=== PATIENT | male | born 1940 | race Caucasian/White ===

== ENCOUNTER 2018-08-25 16:31 | Inpatient (IN) | payer OTHER ==
[~2018-08-25] VITALS: Ht 182.9 cm; Wt 94.1 kg
[2018-08-25 16:40] LABS: Chloride (POC) 93 mmol/L (98-108); Glucose (ISTAT POC) 167 mg/dL (70-99); Hemoglobin (POC) 18.4 g/dL (13.5-17.5); Potassium (POC) 3.9 mmol/L (3.5-5.5); Sodium (POC) 144 mmol/L (135-148); Total CO2 (POC) 27 mmol/L (21-32)
[2018-08-25 17:32] LABS: PCO2 Arterial 45.2 mmHg (35-45); PO2 Arterial 66.9 mmHg (80-100); pH Blood Arterial 7.27 (7.35-7.45)
[2018-08-25 18:07] LABS: BASOPHILS ABSOLUTE AUTO 0.28 K/mm3 (0.00-0.23); BASOPHILS PERCENT AUTO 1 % (0-2); EOSINOPHILS ABSOLUTE AUTO 0.26 K/mm3 (0.00-0.68); EOSINOPHILS PERCENT AUTO 1 % (0-6); Hemoglobin 16.1 g/dL (13.5-17.5); IMMATURE GRAN ABSOLUTE AUTO 1.23 K/mm3 (0.00-0.10); IMMATURE GRAN PERCENT AUTO 4 % (0-1); LYMPHOCYTES ABSOLUTE AUTO 5.21 K/mm3 (0.84-5.20); LYMPHOCYTES PERCENT AUTO 15 % (21-46); MONOCYTES ABSOLUTE AUTO 1.86 K/mm3 (0.16-1.47); MONOCYTES PERCENT AUTO 5 % (4-13); Mean Corpuscular HGB Conc 31.6 g/dL (31.5-36.5); Mean Corpuscular Volume 98 fL (80-100); Mean Platelet Volume 12.3 fL (9.1-12.4); NEUTROPHILS ABSOLUTE AUTO 25.62 K/mm3 (1.96-9.15); NEUTROPHILS PERCENT AUTO 74 % (41-73); Platelet Count 171 K/mm3 (150-400); RDW Coefficient Variation 13.4 % (11.7-14.2); RDW Standard Deviation 48.2 fL (35.1-46.3); White Blood Cell Count 34.46 K/mm3 (4.00-11.30)
[2018-08-25] MEDS ORDERED: AMAN100 PO (18:13)
[2018-08-25] MEDS ORDERED: RASA1 PO (18:14)
[2018-08-25] MEDS ORDERED: SINEMET 25-1001 EACH PO (18:15)
[2018-08-25] MEDS ORDERED: TIMOLOL 0.5%-LAT5 ML BOTHEYES (18:16)
[2018-08-25] MEDS ORDERED: Xalatan2.5 ML BOTHEYES (18:16)
[2018-08-25] MEDS ORDERED: TIMOLOL MALEATE5 ML BOTHEYES (18:17)
[2018-08-25] MEDS ORDERED: METO25ER PO (18:17)
[2018-08-25] MEDS ORDERED: DIGOX250 MCG PO (18:18)
[2018-08-25] MEDS ORDERED: XARELTO20 MG PO (18:19)
[2018-08-25] MEDS ORDERED: ATOR20 PO (18:19)
[2018-08-25] MEDS ORDERED: TAMS.4ER PO (18:20)
[2018-08-25 18:21] LABS: International Normalized Ratio 1.71; Prothrombin Time Results 17.3 Sec (9.7-11.5)
[2018-08-25] MEDS ORDERED: HEARTBURN RELI150 M1 PO (18:21)
[2018-08-25] MEDS ORDERED: Multivitamin1 EAC1 PO (18:22)
[2018-08-25] MEDS ORDERED: CHOL10002 PO (18:22)
[2018-08-25 18:37] LABS: Alanine Aminotransfer (ALT/SGP 30 U/L (12-78); Albumin, Blood 2.6 g/dL (3.4-5.0); Alk Phos 76 U/L (50-136); Anion Gap 12 mmol/L (6-16); Aspartate Aminotrans (AST/SGOT 110 U/L (12-37); Bilirubin, Total 0.9 mg/dL (0.1-1.0); Blood Urea Nitrogen 12 mg/dL (8-24); Bun/Creatinine Ratio 12.2 (12.0-20.0); CO2, Blood 26 mmol/L (21-32); Chloride, Blood 106 mmol/L (98-108); Creatinine, Blood 0.98 mg/dL (0.60-1.20); Globulin, Blood 2.5 g/dL (2.2-4.0); Glomerular Filtration Rate >60 (60-); Glucose, Blood 238 mg/dL (70-99); Potassium, Blood 3.2 mmol/L (3.5-5.5); Sodium, Blood 144 mmol/L (136-145); Total Protein, Blood 5.1 g/dL (6.4-8.2)
[2018-08-25 18:49] LABS: Digoxin (Lanoxin) 0.75 ug/mL (0.80-2.00)
[2018-08-25 19:13] LABS: Troponin I 0.548 ng/mL (0.000-0.040)
--- NOTE | 2018-08-25 19:55 | NUR ---
ADMIT PT ARRIVES FROM ER VIA STRETCHER ON VENT W/ SETTINGS OF AC16/450/100%/10 AND O2 SATS 89-90. LEVOPHED AT 10MCG/MIN, EPI IS OFF. PT IS UNRESPONSIVE TO ALL STIM, OCCASIONAL COUGH NOTED BUT NO RESPONSE TO PAIN, EYES HAVE HORIZONTAL BACK AND FORTH MOTION. LUNGS HAVE RALES THROUGHOUT AND BLOODY SECRETIONS CAN BE SEEN IN ETT. PT HAS FLAIL CHEST MOVEMENT TO STERNUM AND HAS + ACCESSORY MUSCLE USE. BP ADEQUATE, LEVOPHED REDUCED TO 5MCG/MIN. PLAN TO START TTM WITH CHEST AND LEG WRAPS TO GOAL TEMP OF 96.8. EKG SHOWS AFIB 100-110.
--- NOTE | 2018-08-25 22:45 | NUR ---
CALL TO DR AYOUB ATTEMPTED TO CALL DR OSUNA WITHOUT SUCCESS. CALL TO DR AYOUB TO UPDATE ON INCREASED HR W/ AFIB; DR AYOUB AWARE OF HX, NO UOP, AND CONTINUED RALES, CURRENT BP. ORDER FOR 40MG LASIX.
--- NOTE | 2018-08-26 00:18 | NUR ---
NEW ORDERS SPOKE WITH DR GARNER, UPDATED ON PREVIOUS LUNG SOUNDS AND LASIX ADMINISTRATION AND CONTINUED ELEVATED HR UP TO 130. ORDER TO CHANGE LEVO TO PARISH-SYNEPHRINE AND TRY AMIODARONE 150MG BOLUS X 1.
[2018-08-26 03:35] LABS: BASOPHILS ABSOLUTE AUTO 0.15 K/mm3 (0.00-0.23); BASOPHILS PERCENT AUTO 0 % (0-2); EOSINOPHILS ABSOLUTE AUTO 0.01 K/mm3 (0.00-0.68); EOSINOPHILS PERCENT AUTO 0 % (0-6); Hemoglobin 16.9 g/dL (13.5-17.5); IMMATURE GRAN PERCENT AUTO 2 % (0-1); LYMPHOCYTES ABSOLUTE AUTO 1.52 K/mm3 (0.84-5.20); LYMPHOCYTES PERCENT AUTO 4 % (21-46); MONOCYTES PERCENT AUTO 12 % (4-13); Mean Corpuscular HGB 31.9 pg (26.0-34.0); Mean Corpuscular HGB Conc 32.5 g/dL (31.5-36.5); Mean Corpuscular Volume 98 fL (80-100); Mean Platelet Volume 12.1 fL (9.1-12.4); NEUTROPHILS ABSOLUTE AUTO 34.78 K/mm3 (1.96-9.15); NEUTROPHILS PERCENT AUTO 82 % (41-73); Platelet Count 172 K/mm3 (150-400); RDW Coefficient Variation 13.7 % (11.7-14.2); RDW Standard Deviation 49.7 fL (35.1-46.3); Red Blood Cell Count 5.29 M/mm3 (4.30-5.90); White Blood Cell Count 42.46 K/mm3 (4.00-11.30)
[2018-08-26 03:49] LABS: International Normalized Ratio 1.36
[2018-08-26 03:55] LABS: BAND PERCENT MAN 16 % (0-8); BASOPHILS PERCENT MAN 0 % (0-2); EOSINOPHILS PERCENT MAN 0 % (0-6); LYMPHOCYTES ABSOLUTE MAN 2.12 K/mm3 (0.84-5.20); LYMPHOCYTES PERCENT MAN 5 % (21-46); MONOCYTES ABSOLUTE MAN 4.67 K/mm3 (0.16-1.47); MONOCYTES PERCENT MAN 11 % (4-13); NEUTROPHILS ABSOLUTE MAN 35.66 K/mm3 (1.96-9.15); SEG NEUTROPHILS PERCENT MAN 68 % (41-73); TOTAL CELLS COUNTED 100
[2018-08-26 03:59] LABS: Albumin, Blood 3.3 g/dL (3.4-5.0); Albumin/Globulin Ratio 1.3 (0.8-1.8); Bilirubin, Total 1.8 mg/dL (0.1-1.0); Bun/Creatinine Ratio 10.7 (12.0-20.0); Calcium, Blood 7.9 mg/dL (8.5-10.1); Creatinine, Blood 1.87 mg/dL (0.60-1.20); Globulin, Blood 2.6 g/dL (2.2-4.0); Magnesium, Blood 2.1 mg/dL (1.6-2.4); Potassium, Blood 3.8 mmol/L (3.5-5.5); Total Protein, Blood 5.9 g/dL (6.4-8.2)
--- NOTE | 2018-08-26 04:10 | NUR ---
CATHETER CHANGE OUT BLADDER SCANNED, FOUND 100-150ML URINE IN BLADDER, NO URINE IN BRICENO TUBING. CATHETER REMOVED, BLOOD CLOT NOTED TO TIP AND REPLACED WITH 150ML URINE OUT.
[2018-08-26 05:55] LABS: PCO2 Arterial 46.6 mmHg (35-45); PO2 Arterial 88.6 mmHg (80-100)
[2018-08-26 05:56] LABS: pH Blood Arterial 7.16 (7.35-7.45)
--- NOTE | 2018-08-26 06:14 | NUR ---
SHIFT SUMMARY PT REMAINS UNRESPONSIVE. INTUBATED W/ VENT SETTINGS OF AC16/450/80%/12. PROPOFOL AT 10MCG/KG/MIN, LEVOPHED AT 5MCG/MIN, NEOSYNEPHRINE AT 60 AND AMIODARONE AT 1MG/HR. PT HAS SUBSTERNAL RETRACTIONS AND ACCESSORY MUSCLE USE DESPITE SEDATION. TTM CONTINUES UNTIL TONIGHT AT 1999 WITH GOAL OF 96.8. ATTEMPTED TO CALL CRITICAL PH ABG THIS AM BUT NO RESPONSE-WILL UPDATE AM RN. BP LOW BUT MAP >65, EKG SHOWS AFIB IN THE 70'S AND O2 SATS 97%. PT'S REYMUNDO REMAINED IN ROOM ALL NIGHT, HAS CALLED PT'S DAUGHTERS AND PLANS TO INCLUDE THEM IN ANY DECISION MAKING.
--- NOTE | 2018-08-26 08:20 | NUR ---
Assessment- at bedtime. Pt. intubated, on minimal sedation, no response to painful stimuli. No obvious pupillary reaction. On multiple IV gtts: Levophed at 7 mcg and increased to 12 mcg. Neosyn at 60 mcg, propafol at 10 mcg,NS at 10 ml/hr, Amiodarone decreased to .5 mg/hr. Femoral central line intact. No u/o noted at this time.
--- NOTE | 2018-08-26 09:00 | NUR ---
Dr. Erazo into see PT. in consult. Orders noted.
--- NOTE | 2018-08-26 09:30 | NUR ---
Dr. Nicholas Snowden into see pt. Code status changed to DNR.
[2018-08-26 11:44] LABS: Influenza A Negative (NEGATIVE); Influenza B Negative (NEGATIVE)
--- NOTE | 2018-08-26 12:03 | NUR ---
Echocardiogram completed.
--- NOTE | 2018-08-26 15:11 | NUR ---
Neuro- No chg in neuro status. Sl. decerebrate posture seen with nox. stimuli. Seen as sl. shoulder movement. All pressors off and SBP cont> 150.
--- NOTE | 2018-08-26 15:27 | NUR ---
IV FLUIDS- These meds have all been dc,d. Amiodarone,Levophed,Neosynephrine, Propafol.
--- NOTE | 2018-08-26 16:17 | NUR ---
INITIAL PAL CARE VISIT MADE AFTER REVIEW OF EMR. PT IS 78 YEAR OLD WITH HX OF PARKINSON'S AND DEMENTIA, CAD, COPD, OA AND IS MILDLY CONFUSED AT BASELINE. YESTERDAY, PER , PT WAS HAVING A "GOOD DAY" AND WAS OUT WALKING IN THE SNOW AND CAME IN TO DO SOME WOODWORKING WHEN HE FELL TO THE FLOOR. AFTER A PERIOD OF 5-10 MINUTES CPR WAS INITIATED BY A NEIGHBOR AND PT WAS TRANSPORTED BY AMBULANCE TO HOSPITAL. PT DX WITH IL. CURRENTLY HE IS INTUBATED AND ON COOLING DEVICES. HE IS NOT RESPONSIVE TO STIMULI. HE IS MOVING HIS TOES ON HIS RIGHT FOOD BUT NOT PURPOSEFULY. HE DOES NOT APPEAR TO BE IN DISTRESSPER OR PAIN CURRENTLY. 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 REYMUNDO STATES SHE CHANGED HIS CODE STATUS BECAUSE HE WOULD NOT WANT TO LIVE "LIKE A VEGETABLE". SHE EXPRESSES HOPE FOR IMPROVEMENT AND IS GIVING HIM TIME TO WAIT AND SEE BUT SHE IS REALISTIC AND APPROPRIATELY GRIEVING FOR HIM. PT LIVES IN MY NEIGHB[place]HOOD AND IS NOT DRIVING IN THE SNOW. I OFFERED TO TRANSPORT HER HOME THIS JOSSELINE AND BACK TO HOSPITAL IN AM. SHE HAS A RIDE HOME [email or web address] AND HAS MY PERSONAL NUMBER IF SHE NEEDS HELP WITH TRANSPORTATION OR ANYTHING ELSE TOMORROW. PLANNED WITH FOR PAL CARE TO STAY IN TOUCH WITH HER DAILY.
--- NOTE | 2018-08-26 17:46 | NUR ---
SUMMARY-Pt. con't to be unresponsive. Sl. posturing with stimuli. Pt. opened eyes but woth no focusing to nox. stimuli. Raised rt. forearm off pillow with stimulus also. Remains on PS 8 TV 450 50% Peep 12. U/O remains very low.Cooling wrap con't on until 1999 and then begin to rewarm. Heparin on hold x one hr and then will resume at 11u/kg/hr. NaHCO3 infusing at 100ml/hr. Dr. Roberson in earlier and talked with .
--- NOTE | 2018-08-26 20:31 | NUR ---
PATIENT INTUBATED WITH VENT SET AT SPONT PS8 PEEP12 FIO2 50% PATIENT RESP 30'S. PATIENT RECEIVING NO SEDATION AT THIS TIME. PATIENT OPENS EYES WITH ORAL CARE, NOT MAKING EYE CONTACT AND GRIMACE SEEN. BLINK WITH EYELASH TOUCH. PUPILS UNREACTIVE. SLIGHT MOVEMENT SEEN TO BOTH ARMS, NOT FOLLOWING DIRECTIONS AND NO SQUEEZE IN HANDS. BILAT WRIST RESTRAINTS REPLACED TO PREVENT ACCIDENTAL EXTUBATION. COOLING WRAPS REMOVED AND REWARMING STARTED PATIENT TEMP ALREADY 98.8 AT THIS TIME.
--- NOTE | 2018-08-26 21:20 | NUR ---
DOCTOR BING NOTIFIED OF PATIENT TEMP UP TO 100.0 POST REWARMING ORDER OBTAINED FOR TYLENOL AND ICE PACKS PLACED ON PATIENT. PLAN TO RESTART COOLING BLANKET
[2018-08-27 01:06] LABS: BASOPHILS PERCENT AUTO 0 % (0-2); EOSINOPHILS PERCENT AUTO 0 % (0-6); Hematocrit 40.9 % (37.0-53.0); Hemoglobin 13.9 g/dL (13.5-17.5); IMMATURE GRAN PERCENT AUTO 1 % (0-1); LYMPHOCYTES ABSOLUTE AUTO 1.72 K/mm3 (0.84-5.20); LYMPHOCYTES PERCENT AUTO 6 % (21-46); MONOCYTES ABSOLUTE AUTO 2.44 K/mm3 (0.16-1.47); MONOCYTES PERCENT AUTO 9 % (4-13); Mean Corpuscular HGB 32.3 pg (26.0-34.0); Mean Corpuscular Volume 95 fL (80-100); Mean Platelet Volume 12.8 fL (9.1-12.4); NEUTROPHILS ABSOLUTE AUTO 23.79 K/mm3 (1.96-9.15); NEUTROPHILS PERCENT AUTO 84 % (41-73); Platelet Count 102 K/mm3 (150-400); RDW Coefficient Variation 13.7 % (11.7-14.2); RDW Standard Deviation 47.9 fL (35.1-46.3); Red Blood Cell Count 4.31 M/mm3 (4.30-5.90); White Blood Cell Count 28.35 K/mm3 (4.00-11.30)
[2018-08-27 01:31] LABS: BAND PERCENT MAN 18 % (0-8); BASOPHILS PERCENT MAN 0 % (0-2); EOSINOPHILS PERCENT MAN 0 % (0-6); LYMPHOCYTES ABSOLUTE MAN 2.83 K/mm3 (0.84-5.20); LYMPHOCYTES PERCENT MAN 10 % (21-46); METAMYELOCYTE ABSOLUTE MAN 0.85 K/mm3 (0.00-0.00); METAMYELOCYTE PERCENT MAN 3 % (0-0); MONOCYTES PERCENT MAN 6 % (4-13); NEUTROPHILS ABSOLUTE MAN 22.96 K/mm3 (1.96-9.15); SEG NEUTROPHILS PERCENT MAN 63 % (41-73); TOTAL CELLS COUNTED 100
[2018-08-27 01:57] LABS: Albumin, Blood 2.7 g/dL (3.4-5.0); Bilirubin, Total 1.4 mg/dL (0.1-1.0); Bun/Creatinine Ratio 15.8 (12.0-20.0); Calcium, Blood 8.3 mg/dL (8.5-10.1); Creatinine, Blood 2.02 mg/dL (0.60-1.20); Globulin, Blood 2.6 g/dL (2.2-4.0); Magnesium, Blood 1.6 mg/dL (1.6-2.4); Phosphorus, Blood 4.5 mg/dL (2.5-4.9); Potassium, Blood 4.2 mmol/L (3.5-5.5); Total Protein, Blood 5.3 g/dL (6.4-8.2)
[2018-08-27 04:45] LABS: PO2 Arterial 85.2 mmHg (80-100); pH Blood Arterial 7.48 (7.35-7.45)
--- NOTE | 2018-08-27 05:58 | NUR ---
PATIENT REMAINS INTUBATED, OPENS EYES TO ORAL CARE WITH GRIMACING AND GAG WITH DEEP ORAL SUCTIONING. SLIGHT MOVEMENT SEEN IN BOTH ARMS, NO MOVEMENT SEEN IN LEGS. VENT SET AC22 TV450 PEEP12 FIO2 30% CHANGED FROM SPONT DUE TO LOW MINUTE VENTILATION. PATIENT MEDICATED ONCE WITH FENTANYL IV, AFTER BATH COMPLETE. HEPARIN DRIP CONTINUES PER PHARMACY. PATIENT TEMP 100.4 TYLENOL GIVEN PER OG.
--- NOTE | 2018-08-27 09:00 | NUR ---
CARE ASSUMED CARE AND REPORT ASSUMED FROM TUTU GROVER. NO SEDATION AT THIS TIME. PT REMAINS ON VENTILATOR AT AC 22, TV 450, PEEP 12, FIO2 30%. LUNG SOUNDS COARSE THROUGHOUT. PT HAS FLAIL CHEST AND GRIMACES IN PAIN WITH MOVEMENT. WILL ADMINISTER FENTANYL IVP NEEDED. TYLENOL 650 MG GIVEN FOR FEVER; WILL MONITOR. AFIB, HR 90-120S. MAP GREATER THAN 60. HOB ELEVATED AND PT TURNED NEEDED. D5 WITH SODIUM BICARB INFUSING AT 100 ML/HR PER ORDER. HEPARIN GTT INFUSING AT 9 UNITS/HR PER PHARMACY DOSING. BEDSIDE AND UPDATED. DNR BAND SECURED ON WRIST. WILL CONTINUE TO MONITOR.
--- NOTE | 2018-08-27 11:45 | NUR ---
PALLIATIVE CARE VISIT. Pt is off cooling blankets but remains unresponsive and ventilated. He is receiving fentanyl for pain prn per eMAR. Pt appears very comfortable with no nonverbal pain, agitation or distress indicators noted. Spent time in supportive listening and conversation with , Danitza. She said she and pt's daughters who live locally are "hoping for a miracle". Store Associate had just been in and Danitza remarked what a beautiful prayer Store Associate Angi has said for them. She was very moved and appreciative. Spoke briefly with pt's RN and two Drs. Pt's neuro status unchanged and he does not appear to be waking up even with no medication for sedation. Temp is below 100 at time of my visit. Skin warm, slightly damp and reports "fever broke" in explanation of clamy skin. We will cont to follow and support family in advanced care decision making conversations going forward.
--- NOTE | 2018-08-27 13:30 | NUR ---
REASSESSMENT PT REMAINS INTUBATED WITHOUT SEDATION. VSS. REMAINS IN AFIB, HR 80-110. AFEBRILE. BUE RESTRAINED. BEDSIDE. HEPARIN GTT CONTINUES TO INFUSE AT 9 UNITS/HR. D5 WITH BICARB REMAINS INFUSING PER ORDER. OGT REMAINS CLAMPED. WILL CONTINUE TO MONITOR.
--- NOTE | 2018-08-27 15:55 | NUR ---
I met with pt's , Danitza at bedside. Both of them worked here at [facility] for many years. Danitza is trying to hold on to hope that Davion will recover. She admits, he has been ill for some time. She spoke at length about the events that brought Davion here, and it seemed to do her good to be heard and affirmed. We prayed together at bedside for healing at her request. Danitza appears to understand the seriousness of this hospitalization. She is trying to balance this awareness with hope. I will remain available.
--- NOTE | 2018-08-27 17:35 | NUR ---
SHIFT SUMMARY PT INTUBATED WITHOUT SEDATION ALL SHIFT. DOES NOT FOLLOW COMMANDS BUT DOES GRIMACE TO ORAL CARE AND TURNING. FENTANYL GIVEN FOR PAIN NEEDED. SODIUM BICARB DISCONTINUED AND LR MIV STARTED AT 75 ML/HR. HEPARIN GTT REMAINS INFUSING PER PHARMACY DOSING; CURRENTLY INFUSING AT 9 UNITS/HR. BUE RESTRAINED TO PROTECT TUBES AND LINES. BEDSIDE DURING DAYTIME AND UPDATED ON PLAN. PIVOT 1.5 TF STARTED AT 10 ML/HR PER ORDERS IN OGT. MAP GREATER THAN 60 ENTIRE SHIFT. REMAINED IN AFIB, WITH HR 90-120S. HOB ELEVATED AND PT TURNED Q2H. WILL GIVE BEDSIDE, HANDOFF REPORT TO ADAM GROVER.
--- NOTE | 2018-08-27 19:28 | NUR ---
ASSESSMENT PT INTUBATED AND [facility]. OPENS EYES WITH MOUTH CARE ONLY. NOT FOLLOWING INSTRUCTIONS. LUNGS COARSE RHONCI. VENT AC 22 TV 450 PEEP 12 FIO2 25%. SUCTIONED SMALL AMT BLOODY SECRECTIONS VIA ET TUBE. HEART RATE IRREGULAR AFIB 100'S. BP STABLE. BT+ ABD SOFT. NG WITH TUBE FEED PIVOT 1.5 AT 10 ML/HR. 2 ML RESIDUAL REFED. BRICENO CATH PATENT DRAINING CLOUDY DARK YELLOW URINE. CENTRAL LINE TO GROIN WITH LR AT 75 ML/HR AND HEAPARIN T 9 UNITS. REPOSITIONED AND ORAL CARE DONE.
--- NOTE | 2018-08-28 | NUR ---
REASSESSMENT PT INTUBATED AND ON [facility] VENT. BED BATH COMPLETE. LUNGS CLEAR BUT DECREASED IN BASES. SCANT BLOODY SECRECTIONS SUCTIONED VIA ET TUBE. ORAL CARE DONE. PT OPENED EYES AND MOVED RIGHT ARM WITH TURNING DURING BED BATH. 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 OPENED MOUTH FOR ORAL CARE WHEN ASKED. BLOOD GULCOSE DONE. RESIDUAL CHECK ZERO.
--- NOTE | 2018-08-28 01:17 | NUR ---
HEAD CT PT TAKEN TO CT WITH RT AND PT ON PORT VENT. HEAD CT DONE AND PT BACK TO ROOM. NO CHANGES
--- NOTE | 2018-08-28 04:10 | NUR ---
REASSESSMENT PT OPENING EYES AND MOUTH TO INSTRUCTIONS. LUNGS CLEAR BUT DECREASED. NO VENT CHANGES. LABS DRAWN VIA CENTRAL LINE TO RIGHT GROIN, CLAVES CHANGED. ORAL CARE DONE. CXR DONE AND PT REPOSITIONED. ZERO RESIDUAL.
[2018-08-28 04:24] LABS: Hematocrit 36.1 % (37.0-53.0); Hemoglobin 12.1 g/dL (13.5-17.5); Mean Corpuscular HGB 31.9 pg (26.0-34.0); Mean Corpuscular HGB Conc 33.5 g/dL (31.5-36.5); Mean Corpuscular Volume 95 fL (80-100); Platelet Count 70 K/mm3 (150-400); RDW Coefficient Variation 14.1 % (11.7-14.2); RDW Standard Deviation 48.9 fL (35.1-46.3); Red Blood Cell Count 3.79 M/mm3 (4.30-5.90); White Blood Cell Count 18.04 K/mm3 (4.00-11.30)
[2018-08-28 04:25] LABS: Mean Platelet Volume 13.3 fL (9.1-12.4)
[2018-08-28 04:42] LABS: Albumin, Blood 2.6 g/dL (3.4-5.0); Anion Gap 7 mmol/L (6-16); Blood Urea Nitrogen 41 mg/dL (8-24); Bun/Creatinine Ratio 24.7 (12.0-20.0); CO2, Blood 34 mmol/L (21-32); Chloride, Blood 96 mmol/L (98-108); Creatinine, Blood 1.66 mg/dL (0.60-1.20); Glomerular Filtration Rate 43 (60-); Glucose, Blood 121 mg/dL (70-99); Magnesium, Blood 1.8 mg/dL (1.6-2.4); Phosphorus, Blood 3.2 mg/dL (2.5-4.9); Potassium, Blood 3.4 mmol/L (3.5-5.5); Sodium, Blood 137 mmol/L (136-145)
[2018-08-28 04:50] LABS: BAND PERCENT MAN 22 % (0-8); BASOPHILS PERCENT MAN 0 % (0-2); EOSINOPHILS PERCENT MAN 0 % (0-6); LYMPHOCYTES PERCENT MAN 5 % (21-46); METAMYELOCYTE ABSOLUTE MAN 0.18 K/mm3 (0.00-0.00); METAMYELOCYTE PERCENT MAN 1 % (0-0); MONOCYTES PERCENT MAN 5 % (4-13); NEUTROPHILS ABSOLUTE MAN 16.05 K/mm3 (1.96-9.15); SEG NEUTROPHILS PERCENT MAN 67 % (41-73); TOTAL CELLS COUNTED 100
--- NOTE | 2018-08-28 05:02 | NUR ---
HEPARIN NOTIFIED DR SMART REGARDING PLT DOWN TO 70 AND POTASSIUM 3.4. RECEIVED ORDERS TO STOP HEPARIN AND GIVE KCL 20 MEQ IV TIMES ONE.
[2018-08-28 05:26] LABS: PCO2 Arterial 39.8 mmHg (35-45); PO2 Arterial 75.4 mmHg (80-100); pH Blood Arterial 7.53 (7.35-7.45)
--- NOTE | 2018-08-28 05:52 | NUR ---
SHIFT SUMMARY [facility]. VENT SETTINGS CONT AT AC 22 TV 450 PEEP 12 FIO2 25%. LUNGS SOUNDS IMPROVED TO CLEAR BUT DECREASED. SCANT AMT BLOOY SECRECTIONS VIA ET TUBE SUCTIONED. HEPARIN STOPPED DUE TO LOW PLT COUNT. HEART RATE CONT IRREGULAR AFIB. BP STABLE. PT OPENING EYES AND FOLLOWING SMIPLE INSTRUCTIONS AT TIMES LIKE OPEN YOUR MOUTH AND MOVING RIGHT ARM DURING BED BATH. BILAT SOFT WRIST RESTRAINTS ON. BT+ ABD SOFT. OG WITH TUBE FEED PIVOT 1.5 AT 20 ML/HR. NO RESIDUALS. OUT PUT IMPROVED. TURNED Q2HR WITH HOB UP. PT TAKEN FOR HEAD CT. SPO2 DOWN TO 90% WHEN LYING FLAT FOR CT BUT BACK UP TO 96% WHEN HOB UP TO 30 DEGREES. TEMP 100.8 MED WITH TYLENOL. REPORT TO ON COMING NURSE.
--- NOTE | 2018-08-28 09:07 | NUR ---
CARE ASSUMED CARE AND REPORT ASSUMED FROM ROXANN GROVER. PT INTUBATED WITH NO SEDATION AT THIS TIME. VENT AC 22, 450, PEEP 12, FIO2 25%. LUNG SOUNDS CLEAR AT THIS TIME. BUE RESTRAINED TO PROTECT ETT AND LINES. LR INFUSING AT 75 ML/HR PER ORDER. HOB ELEVATED. VSS. AFIB, HR 90-110 WITH STABLE BP. NO S/S PAIN AT THIS TIME. TOLERATING TF AT 20 ML/HR WITH ZERO RESIDUAL. WILL CONTINUE TO MONITOR.
--- NOTE | 2018-08-28 13:07 | NUR ---
REASSESSMENT PT REMAINS INTUBATED WITHOUT SEDATION. CONTINUES TO NOT FOLLOW COMMANDS BUT DOES SLOWLY OPEN EYES WITH STIMULATION. VENT AC 22, 450, PEEP CHANGED TO 8, FIO2 25%. LUNG SOUNDS CLEAR. BUE REMAIN RESTRAINED. REMAINS IN AFIB. BEDSIDE. WILL CONTINUE TO MONITOR.
--- NOTE | 2018-08-28 13:13 | NUR ---
REASSESSMENT PT RECIEVING PART 2 OF STRESS TEST AT THIS TIME. VSS. DAUGHTER BEDSIDE. PT UP AND DOWN FROM BED TO CHAIR AND BEDSIDE COMMODE MULITPLE TIMES THIS AM. WILL CONTINUE TO MONITOR.
--- NOTE | 2018-08-28 16:33 | NUR ---
REASSESSMENT PT REMAINS INTUBATED WITH NO SEDATION. DOES OPEN EYES MORE OFTEN TO VERBAL STIMULI. SLOW TO FOLLOW COMMANDS BUT DOES ATTEMPT. REMAINS IN AFIB AND VSS. LR CONTINUES TO INFUSE AT 75 ML/HR PER ORDER. TOLERATING TF. FAMILY BEDSIDE AND UPDATED. WILL CONTINUE TO MONITOR.
--- NOTE | 2018-08-28 18:40 | NUR ---
Pt's , Danitza, tells me she ses signs of immprovment today. "He is opening his eyes and tracking." Danitza verbalizes understanding that "this may be a long road." I listened to more of their story and provided prayer at bedside. Danitza is a eunice woman woh could use continued emotional support. Telecommunications Facility Examiner services will remain available.
--- NOTE | 2018-08-28 18:55 | NUR ---
SHIFT SUMMARY PT INTUBATED WITHOUT SEDATION ENTIRE SHIFT. DID OPEN EYES TO VERBAL STIMULATION AND WAS SLOW TO RESPOND WHEN PROMPTED WITH COMMANDS. REMAINED ON VENT AC ENTIRE SHIFT AND PEEP DECREASED TO 8. BUE RESTAINED. PT TURNED Q2H AND HOB ELEVATED. TOLERATING TF AT 40 ML/HR PER ORDER. LR INFUSING AT 75 ML/HR PER ORDER. AND DAUGHTERS UPDATED ON STATUS. TYELENOL GIVEN FOR FEVER NEEDED. REMAINED IN AFIB ENTIRE SHIFT. PARKINSONS MEDS STARTED TODAY PER MD. WILL GIVE BEDSIDE, HANDOFF REPORT TO ADAM GROVER.
--- NOTE | 2018-08-28 20:00 | NUR ---
ASSUMED PT CARE: PT CONT INTUBATED, W BILAT WRIST REST, NOT ON ANY SEDATION. PT RESPONDS TO VOICE, PARTIALLY OPENING EYES. WRIST RESTRAINTS REMOVED & PT OBSERVED. SEEMS TO TRY & FOLLOW VOICE COMMANDS W EYES, ALSO RAISING R HAND & FOREARM OFF OF BED. 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 MOVEMENT IS VERY SLOW. MOVES LEGS SLIGHTLY. PT TEMP NOTED TO BE INCREASING. CONT IN AFIB. BP STABLE.
--- NOTE | 2018-08-29 | NUR ---
BED BATH & LINEN CHANGE COMPLETE. PT HAS GENERALIZED EDEMA, BUNNY HANDS W SWELLING, BUT RIGHT SIDE MORE THAN LEFT. ROM DONE. LUNG SOUNDS NOTED MORE DECREASED L BASE THAN R, & PT W LOWER SATS WHEN TURNED L. ETT SECRETIONS THICK TANNISH W SOME BLOOD. WILL CONT TO MONITOR. CONT W WRISTS RESTRAINED. PT ABLE TO RAISE HEAD OFF OF PILLOW.
[2018-08-29 04:51] LABS: BASOPHILS ABSOLUTE AUTO 0.03 K/mm3 (0.00-0.23); BASOPHILS PERCENT AUTO 0 % (0-2); EOSINOPHILS ABSOLUTE AUTO 0.05 K/mm3 (0.00-0.68); EOSINOPHILS PERCENT AUTO 0 % (0-6); Hematocrit 36.7 % (37.0-53.0); Hemoglobin 11.9 g/dL (13.5-17.5); IMMATURE GRAN ABSOLUTE AUTO 0.24 K/mm3 (0.00-0.10); IMMATURE GRAN PERCENT AUTO 1 % (0-1); LYMPHOCYTES ABSOLUTE AUTO 1.44 K/mm3 (0.84-5.20); LYMPHOCYTES PERCENT AUTO 9 % (21-46); MONOCYTES ABSOLUTE AUTO 1.91 K/mm3 (0.16-1.47); MONOCYTES PERCENT AUTO 11 % (4-13); Mean Corpuscular HGB 31.5 pg (26.0-34.0); Mean Corpuscular HGB Conc 32.4 g/dL (31.5-36.5); Mean Corpuscular Volume 97 fL (80-100); NEUTROPHILS ABSOLUTE AUTO 13.31 K/mm3 (1.96-9.15); NEUTROPHILS PERCENT AUTO 78 % (41-73); Platelet Count 76 K/mm3 (150-400); RDW Coefficient Variation 14.3 % (11.7-14.2); RDW Standard Deviation 50.7 fL (35.1-46.3); Red Blood Cell Count 3.78 M/mm3 (4.30-5.90); White Blood Cell Count 16.98 K/mm3 (4.00-11.30)
[2018-08-29 04:54] LABS: Mean Platelet Volume 13.7 fL (9.1-12.4)
[2018-08-29 05:04] LABS: Anion Gap 6 mmol/L (6-16); Blood Urea Nitrogen 36 mg/dL (8-24); Bun/Creatinine Ratio 31.9 (12.0-20.0); CO2, Blood 34 mmol/L (21-32); Calcium, Blood 8.1 mg/dL (8.5-10.1); Chloride, Blood 101 mmol/L (98-108); Creatinine, Blood 1.13 mg/dL (0.60-1.20); Glomerular Filtration Rate >60 (60-); Glucose, Blood 137 mg/dL (70-99); Magnesium, Blood 1.9 mg/dL (1.6-2.4); Potassium, Blood 3.5 mmol/L (3.5-5.5); Sodium, Blood 141 mmol/L (136-145)
[2018-08-29 05:13] LABS: PCO2 Arterial 38.8 mmHg (35-45); PO2 Arterial 56.8 mmHg (80-100); pH Blood Arterial 7.54 (7.35-7.45)
--- NOTE | 2018-08-29 06:00 | NUR ---
PT CONT ON SPONT VENT MODE, & TOLERATING WELL, FIO2 INCREASED TO 30% BY RT AFTER ABG DONE. CONT W WRIST RESTRAINTS IN PLACE. PT HAS BEEN MED W TYLENOL X2 FOR INCREASED TEMP. TUBE FEEDING INCREASED TO GOAL RATE, NO RESIDUAL. CONT TO RESPOND W SL EYE OPENING & RAISING OF R HAND WHEN SPEAKING TO PT.
--- NOTE | 2018-08-29 07:45 | NUR ---
RECEIVED REPORT FROM REILLY HUTCHINS, AND ASSUMED CARE OF PT.
--- NOTE | 2018-08-29 13:30 | NUR ---
SPUTUM SENT TO LAB.
--- NOTE | 2018-08-29 14:23 | NUR ---
NURSING SUMMARY VENT SETTINGS ON SPONTANEOUS FROM 0430 ([facility] PEEP 5, V450, AND FIO2 30%) UNTIL 1230 (ASSISTED VENTILATIONS 14, PEEP 5, V450, FIO2 35%), LUNGS COARSE IN LEFT LUNGS BENITEZ, CLEAR ON RIGHT LUNG BENITEZ, DIMINISHED AT BILATERAL BASES, SATS 93-97%, CPT STARTED TID TODAY, SPUTUM SENT TO LAB, SUCTIONING NEEDED. APPEARS COMFORTABLE, NO SEDATION. OPENS EYES TO VOICE, ATTEMPTS TO SQUEEZE HANDS WITH SLOW RESPONSE TO REQUEST, WEAKER ON RIGHT SIDE. OROGASTRIC TUBE IN PLACE WITH PIVOT 1.5 AT 50 CC/HR WHICH IS GOAL RATE, WATER FLUSHES AT 30 CC EVERY 4 HOURS. ELEVATED TEMPERATURES, GIVING TYLENOL EVERY 4 HOURS. TURNING EVERY 2 HOURS. ELEVATED SBP'S, STARTED ON HOME DOSE OF LOPRESSOR. BACK ON PARKINSON'S MEDICATIONS. PHOS LOW AT 2.0 TODAY, STARTED ON NEUTROPHOS X 4 DOSES. RIGHT GROIN CENTRAL LINE WITH 4 LUMENS, SALINE LOCKED. RECEIVING ROCEPHIN. AT BEDSIDE FOR SEVERAL HOURS TODAY.
--- NOTE | 2018-08-29 15:32 | NUR ---
ELEVATED TEMPERATURE, NEXT DOSE OF TYLENOL AVAILABLE AT 1600, STARTED ALTERNATIVE COOLING MEASURES, ICE PACKS UNDER EACH ARM AND GROIN AREA, COOL WASH CLOTH TO FOREHEAD. RIGHT GROIN CENTRAL LINE DRESSING SITE WITH BLOODY DRAINAGE, REMOVED, AND PLACED A NEW CENTRAL LINE DRESSING PER PROTOCOL.
--- NOTE | 2018-08-29 15:53 | NUR ---
DAUGHTER AT BEDSIDE FOR VISIT.
--- NOTE | 2018-08-30 01:36 | NUR ---
PT INTUBATED AND RESTING ON THE VENT. EARLIER IN THE NIGHT SPO2 DROPPED TO 70'S-80'S AND WAS UNABLE TO RECOVER DESPITE SUCTIONING SHINE/RED STREAKED SPUTUM FROM ETT. THIS OCCURED AFTER CPT WAS DONE. DR. ESQUIVEL AT BEDSIDE AND TURNED PEEP UP TO 12. FIO2 HAS BEEN TITRATED DOWN FROM 100% TO NOW 45%. DR. ESQUIVEL WANTS TO LEAVE PEEP AT 12 FOR NOW. SPO2 IN THE 90'S NOW. NO SIGN OF DISTRESS NOW.
[2018-08-30 05:03] LABS: PCO2 Arterial 45.1 mmHg (35-45); PO2 Arterial 94.1 mmHg (80-100); pH Blood Arterial 7.46 (7.35-7.45)
[2018-08-30 05:29] LABS: Hematocrit 40.4 % (37.0-53.0); Mean Corpuscular HGB 31.4 pg (26.0-34.0); Mean Corpuscular HGB Conc 32.2 g/dL (31.5-36.5); Mean Corpuscular Volume 98 fL (80-100); NRBC ABSOLUTE 0.02 K/mm3 (0.00-0.02); NRBC Auto 0.1 /100 WBC (0.0-0.2); Platelet Count 92 K/mm3 (150-400); RDW Coefficient Variation 14.1 % (11.7-14.2); RDW Standard Deviation 51.5 fL (35.1-46.3); Red Blood Cell Count 4.14 M/mm3 (4.30-5.90); White Blood Cell Count 19.35 K/mm3 (4.00-11.30)
[2018-08-30 06:10] LABS: Anion Gap 7 mmol/L (6-16); Blood Urea Nitrogen 41 mg/dL (8-24); Bun/Creatinine Ratio 47.2 (12.0-20.0); CO2, Blood 33 mmol/L (21-32); Calcium, Blood 7.9 mg/dL (8.5-10.1); Chloride, Blood 101 mmol/L (98-108); Creatinine, Blood 0.87 mg/dL (0.60-1.20); Glomerular Filtration Rate >60 (60-); Glucose, Blood 190 mg/dL (70-99); Phosphorus, Blood 3.1 mg/dL (2.5-4.9); Potassium, Blood 3.7 mmol/L (3.5-5.5); Sodium, Blood 141 mmol/L (136-145)
[2018-08-30 06:36] LABS: BAND PERCENT MAN 8 % (0-8); BASOPHILS PERCENT MAN 0 % (0-2); EOSINOPHILS PERCENT MAN 0 % (0-6); LYMPHOCYTES % ATYPICAL MANUAL 2 % (0-0); LYMPHOCYTES ABSOLUTE MAN 1.54 K/mm3 (0.84-5.20); LYMPHOCYTES PERCENT MAN 6 % (21-46); MONOCYTES ABSOLUTE MAN 1.74 K/mm3 (0.16-1.47); MONOCYTES PERCENT MAN 9 % (4-13); MYELOCYTE ABSOLUTE MAN 0.19 K/mm3 (0.00-0.00); MYELOCYTE PERCENT MAN 1 % (0-0); NEUTROPHILS ABSOLUTE MAN 15.86 K/mm3 (1.96-9.15); SEG NEUTROPHILS PERCENT MAN 74 % (41-73); TOTAL CELLS COUNTED 100
--- NOTE | 2018-08-30 07:18 | NUR ---
SUMMARY PT INTUBATED NO SEDATION. WILL OPEN EYE'S AT TIMES AND TRACKS. NO ISSUES WITH DESATTING AFTER PEEP WAS INCREASED TO 12. FIO2 DOWN TO 40% FROM 100%. REMAINS IN AFIB. TROPONIN 12.[address] ESQUIVEL AWARE. NO SIGN OF DISTRESS.
--- NOTE | 2018-08-30 07:49 | NUR ---
ASSUMED CARE: PT RESTING IN BED. VENT SETTINGS AC 14/450/40%/12. NO PROPOFOL NOTED, PT DOES NOT APPEAR TO ASSIST WITH REPOSITIONING. RT IN ROOM SETTING UP BED CPT. TUBE FEED IN PLACE THROUGH OG. NO ACUTE NEEDS OR CONCERNS NOTED.
--- NOTE | 2018-08-30 09:03 | NUR ---
PT UNABLE TO FOLLOW DIRECTIONS BUT RAISES EYEBROWS WHEN SPOKEN TO AND ATTEMPTS TO OPEN EYES. MUSCLE MOVEMENT CAN BE FELT IN HANDS WHEN ASKED TO SQUEEZE BUT UNABLE TO COMPLETE TASK. AT BEDSIDE AT THIS TIME. NO FURTHER NEEDS OR CONCERNS
--- NOTE | 2018-08-30 14:22 | NUR ---
Supportive conversation with . She is taking care of herself; returning home in the afternoons from the hospital to rest, do laundry, have a cup of tea and a nap before coming back in to be at bedside for her . Fond memories were shared. She is very grateful for Palliative Nurse, Daria, and the ongoing support she has given her. Will remain available. She is praying for a miracle for her .
--- NOTE | 2018-08-30 18:43 | NUR ---
SHIFT SUMMARY: PT REMAINS ON VENT WITH SETTINGS AC 14/450/10/40%. SUCTIONING FREQUENTLY WITH BLOOD TINGED SPUTUM. REMAINS WITH MINIMAL RESPONSE, FURROWED BROW WITH STIMULATION AND OCCASIONAL EYE OPENING. CONTINUES IN RESTRAINTS. NO FURTHER CONCERNS OR NEEDS NOTED.
--- NOTE | 2018-08-30 19:00 | NUR ---
[place] of Care; Patient intubated, AC 14/450/10/40% O2-98-100%, 7.5, 24cm at lip. No sedation medications at this time. Pt shows slight facial grimace to painful stimuli, attempts to open eyes, and squeeze hands to verbal stimuli. Otherwise unable to follow commands. Minimal plantar reflex, gag reflex wnl. OG tube on continuous feed, pivot 1.5 at goal of 50ml/hr, 30ml flush q4hr, will assess residual q4hr. Chavez cath patent and intact, draining clear dark yellow urine. Bilateral soft wrist restraints in place to protect lines, tubes, cords. No s/s of pain or discomfort. Central line to rt femoral patent and intact, infusing TKO. Will continue to monitor for pain, safety, comfort.
--- NOTE | 2018-08-30 19:34 | NUR ---
VERIFIED ET TUBE PLACEMENT WITH NIGHT RN. ET TUBE AT 24 AT LIP, NOT 26. VERIFIED WITH RT NOTES
[2018-08-31 04:37] LABS: BASOPHILS PERCENT AUTO 1 % (0-2); EOSINOPHILS PERCENT AUTO 0 % (0-6); Hematocrit 35.7 % (37.0-53.0); Hemoglobin 11.4 g/dL (13.5-17.5); IMMATURE GRAN ABSOLUTE AUTO 0.51 K/mm3 (0.00-0.10); IMMATURE GRAN PERCENT AUTO 3 % (0-1); LYMPHOCYTES ABSOLUTE AUTO 1.12 K/mm3 (0.84-5.20); LYMPHOCYTES PERCENT AUTO 6 % (21-46); MONOCYTES ABSOLUTE AUTO 2.25 K/mm3 (0.16-1.47); MONOCYTES PERCENT AUTO 12 % (4-13); Mean Corpuscular HGB 31.1 pg (26.0-34.0); Mean Corpuscular HGB Conc 31.9 g/dL (31.5-36.5); Mean Corpuscular Volume 97 fL (80-100); NEUTROPHILS ABSOLUTE AUTO 15.37 K/mm3 (1.96-9.15); NEUTROPHILS PERCENT AUTO 80 % (41-73); NRBC ABSOLUTE 0.03 K/mm3 (0.00-0.02); NRBC Auto 0.2 /100 WBC (0.0-0.2); Platelet Count 105 K/mm3 (150-400); RDW Coefficient Variation 14.2 % (11.7-14.2); RDW Standard Deviation 50.2 fL (35.1-46.3); Red Blood Cell Count 3.67 M/mm3 (4.30-5.90); White Blood Cell Count 19.35 K/mm3 (4.00-11.30)
[2018-08-31 04:39] LABS: Mean Platelet Volume 14.2 fL (9.1-12.4)
[2018-08-31 04:46] LABS: PCO2 Arterial 49.2 mmHg (35-45); PO2 Arterial 87.3 mmHg (80-100); pH Blood Arterial 7.46 (7.35-7.45)
[2018-08-31 04:53] LABS: Anion Gap 4 mmol/L (6-16); Blood Urea Nitrogen 51 mg/dL (8-24); Bun/Creatinine Ratio 52.3 (12.0-20.0); CO2, Blood 37 mmol/L (21-32); Calcium, Blood 7.7 mg/dL (8.5-10.1); Chloride, Blood 101 mmol/L (98-108); Creatinine, Blood 0.98 mg/dL (0.60-1.20); Glomerular Filtration Rate >60 (60-); Glucose, Blood 159 mg/dL (70-99); Magnesium, Blood 2.3 mg/dL (1.6-2.4); Phosphorus, Blood 2.7 mg/dL (2.5-4.9); Potassium, Blood 3.6 mmol/L (3.5-5.5); Sodium, Blood 142 mmol/L (136-145)
--- NOTE | 2018-08-31 06:45 | NUR ---
Shift Summary: Some improvement noted in neuro status throughout shift. patient now starting to track with eyes, and attempted to mouth words. Increase in gross movement ot extremities, resist turns/cares by pushing against staff or side rails. remained on vent settings AC 14/450/10/40%, O2- 96-98%, VSS. Chavez cath noted to be leaking large amounts of urine around catheter. 14fr Chavez D/c'd, new 16fr catheter placed, thus far patent and intact. Central line dressing to rt femoral changed this shift per soiling (with urine), new dressing remains C/D/I. Tube feed at goal rate of 50ml/hr throughout shift, residuals of 0ml. X3 doses of prn fentanyl given for facial grimace/signs of discomfort with good effect noted. Will continue to monitor until report to day shift RN.
--- NOTE | 2018-08-31 08:00 | NUR ---
MALE PATIENT ON VENT TO ORAL ET. TV 450, FIO2 30%, PEEP 10, AC 14. ET SECRETIONS STILL BLOOD TIN GED. TURNED TO LEFT SIDE. TUBE FEEDING CHANGED OUT TUBING AND CONTAINER. PIVIT AT 50MLS /HOUR AND WATER 30MLS Q4HOUR. PAT CHLOE WELL WITH SCANT RESIDUALS. LUNGS ONLY OCC RHONCHI BUNNY. GOOD URINE OUTPUT. BONDS HERE TO SEE PATIENT, CA, BUT DOES NOT TRACK OR STARTLE.
--- NOTE | 2018-08-31 11:45 | NUR ---
DR ESQUIVEL IN TO EXAMINE PATIENT. FIO2 DECREASED TO 8. AT BEDSIDE.
--- NOTE | 2018-08-31 12:00 | NUR ---
RECTAL TUBE INSERTED W/O DIFF. LIQ LIGHT BROWN STOOL.
--- NOTE | 2018-08-31 16:47 | NUR ---
AT 1615 FEMOSTOP APPLIED TO RIGHT GROIN AND QUAD CENTRAL LINE REMOVED. SLOWLY DECREASED PRESURE AND BAM DRESSING APPLIED. CHLOE VERY WELL.
--- NOTE | 2018-08-31 18:36 | NUR ---
MALE PAT REMAINS ON VENT BUT PEEP HAS BEEN DOWN TO 8 MOST OF THE DAY. SOME SANG FLUID FROM RIGHT GROIN SITE. OPENS HIS EYES TO HIS NAME AND LOOKS AT PEOPLE BUT DOES NOT TRACK WELL. HAS A COUGH AND A GAG PRESENT. CA. RIGHT ARM AND LEG WEAKLY LIFTED BY PATIENT.RECTAL TUBE HAS STOOL IN THE TUBING. GOOD UA FROM BRICENO CATH.
--- NOTE | 2018-08-31 19:15 | NUR ---
[place] of Care: Patient intubated, AC-14/450/8/30%, O2-96%. No s/s of pain or discomfort. Remains off of sedation medications, but minimally responsive. Attempts to open eyes to verbal stimuli, attempts to squeeze hands on command. Gross movement of rt arm and rt leg, facial grimace to oral care, positive gag reflex. Heart rhythm shows A-fibb, rate- 80's-90's, VSS. Tube feed is Pivot 1.5cal at goal rate of 50ml/hr, 30ml water flush q4hr, residual 0ml at this time, will assess residual q4hr. Peripheral IV x1 to rt hand patent and intact. Central line to rt femoral d/c'd on day shift, juanita and clear occlusive dressing C/D/I, no s/s of bleeding/hematoma. Will continue to monitor for pain, comfort, safety.
[2018-09-01 04:12] LABS: BASOPHILS ABSOLUTE AUTO 0.05 K/mm3 (0.00-0.23); BASOPHILS PERCENT AUTO 0 % (0-2); EOSINOPHILS ABSOLUTE AUTO 0.11 K/mm3 (0.00-0.68); EOSINOPHILS PERCENT AUTO 1 % (0-6); Hematocrit 38.3 % (37.0-53.0); Hemoglobin 12.1 g/dL (13.5-17.5); IMMATURE GRAN ABSOLUTE AUTO 0.78 K/mm3 (0.00-0.10); IMMATURE GRAN PERCENT AUTO 5 % (0-1); LYMPHOCYTES ABSOLUTE AUTO 2.12 K/mm3 (0.84-5.20); LYMPHOCYTES PERCENT AUTO 13 % (21-46); MONOCYTES ABSOLUTE AUTO 2.04 K/mm3 (0.16-1.47); MONOCYTES PERCENT AUTO 13 % (4-13); Mean Corpuscular HGB 31.5 pg (26.0-34.0); Mean Corpuscular HGB Conc 31.6 g/dL (31.5-36.5); NEUTROPHILS ABSOLUTE AUTO 11.16 K/mm3 (1.96-9.15); NEUTROPHILS PERCENT AUTO 69 % (41-73); NRBC ABSOLUTE 0.09 K/mm3 (0.00-0.02); NRBC Auto 0.6 /100 WBC (0.0-0.2); Platelet Count 117 K/mm3 (150-400); RDW Coefficient Variation 14.4 % (11.7-14.2); RDW Standard Deviation 51.8 fL (35.1-46.3); Red Blood Cell Count 3.84 M/mm3 (4.30-5.90); White Blood Cell Count 16.26 K/mm3 (4.00-11.30)
[2018-09-01 04:20] LABS: Mean Corpuscular Volume 100 fL (80-100); Mean Platelet Volume 13.8 fL (9.1-12.4)
[2018-09-01 04:38] LABS: Anion Gap 5 mmol/L (6-16); Blood Urea Nitrogen 50 mg/dL (8-24); Bun/Creatinine Ratio 52.1 (12.0-20.0); CO2, Blood 37 mmol/L (21-32); Calcium, Blood 7.9 mg/dL (8.5-10.1); Chloride, Blood 105 mmol/L (98-108); Creatinine, Blood 0.96 mg/dL (0.60-1.20); Glomerular Filtration Rate >60 (60-); Glucose, Blood 142 mg/dL (70-99); Magnesium, Blood 2.2 mg/dL (1.6-2.4); Phosphorus, Blood 2.8 mg/dL (2.5-4.9); Potassium, Blood 3.2 mmol/L (3.5-5.5); Sodium, Blood 147 mmol/L (136-145)
--- NOTE | 2018-09-01 06:13 | NUR ---
Shift Summary: No change in neuro status throughout shift. Gross movement of extremities except for lt arm. Facial grimace to oral care. Attempts to opens eyes and squeeze hands to verbal command. At times will spontaneously open eyes and look at staff, but will not track. No s/s of pain/discomfort when at rest, some facial grimace with turns. Chavez cath remains patent and intact, draining dark yellow clear urine. Rectal tube remains patent and intact, 100ml output this shift. New peripheral IV placed to LFA, both peripheral IV's remain patent and intact. Switched from AC to spontaneous breathing mode late this shift, tolerating well, RT Markus chose to leave patient on this mode. Contacted Dr. Vasquez this morning r/t troponin-8.89, and potassium-3.2. Received order for KCL 40meq IV x1. Will continue to monitor until report to day shift RN.
--- NOTE | 2018-09-01 08:00 | NUR ---
MALE PAT CHLOE SPONT PS 7 AND PEEP 5 WITH FIO2 30%. LUNGS CLEAR ANT AND DIM IM BASES BUNNY. DR Jeyson MILLIGAN IN TO EXAMINE PAT. KCL RIDER INFUSING. OG TUBE WITH PIVOT AT 30ML/HOUR AND WATER 30ML Q4 HOURS. NO RESIDUALS. TURNED TO RIGHT SIDE. DR MILLIGAN TO BE NOTIFIED WHEN ARRIVES.
--- NOTE | 2018-09-01 11:16 | NUR ---
DR MILLIGAN CALLED AND IS HERE TO YALK WITH KIKI'S . DR AGUAYO NOTIFIED AND PS DECRESED TO 5. DISCUSSION ABOUT KIKI'S MCFP ISSUES AND THAT HE MAY NOT LIVE LONG IF THE ET TUBE IS REMOVED. KIKI OPENS HIS EYES TO HIS NAME. THIS NURSE DOES NOT SEE ANY TRACKING OR VACCINE SPECIALIST TO COMMAND. INSISRS THAT HE HAS GRIPPED HER PATIÑO. PAT DOES VERY WEAKLY MOVE ALL EXTS EXCEPT LEFT ARM.
--- NOTE | 2018-09-01 11:45 | NUR ---
Palliative Care Clinical visit: Update obtained from EMR, consultative sales associate, pt's RN and . made a couple of conflicting statements re: plans, feeding tube etc. RN states Dr and have discussed removing life support and transitioning to comfort care. I gently discussed this with Danitza when she said, "I think they are going to leave the feeding tube in" and "the patient account representative will remove the tubes if he is ready". I discussed several possible scenarios with Danitza re: what might happen when pt is extubated. She does think she wants to be present when tubes are removed but would like to step out and then come back in the room afterwards. Pt does not respond to tactile or verbal stimuli with me and no response witnessed with pt's either. His eyes are half open. He does not exhibit any nonverbal indicators of pain, anxiety, agitation or distress. We talked about comfort care and medications that may be used to tx s/s if needed. Danitza is waiting to hear back from pt's daughters re: whether they can or wish to be here when pt is extubated. Danitza is awaiting patient account representative's visit and eval today. Danitza and RN's asked to call me if they would like Pal care for support. Spent time listening to Danitza talk things thru and gave her emotional support, hugs. She is appropriately tearful. Update given to Type Cutter Scott also, who had been visiting pt and last week.
--- NOTE | 2018-09-01 13:24 | NUR ---
Provided supportive visit to Mikey's two dtrs at bedside. All appear to understand prognosis. All in agreement regarding POC. Extubation tomorrow and "then we'll hope for the best." Prayer and spiritual support was appreciated. I will remain available.
--- NOTE | 2018-09-01 17:26 | NUR ---
SPO2 DECREASED AND RR ELEVATED. PLACED BACK ON FULL VENT SETTING. ET SUCTION MUCH BLODDIER. FIO2 UP TO 60% AND PAT MED WITH SUBLIMAZE FOR ELEVATED RR. MUCH CALMER. DR AGUAYO CALLED ABOUT FIO2 MAT 60%.
--- NOTE | 2018-09-01 19:10 | NUR ---
ASSUMED CARE OF PT, BEDSIDE REPORT RECEIVED. PT IS INTUBATED, VENT AC 14, FIO2 50%, PEEP 5, SATS HIGH 90S, RR 20, LUNGS CLEAR BILAT UPPER LOBES, CRACKLES/DIM BILAT LOWER. HR IRREG, AFIB ON MONITOR RATE 110S AT THIS TIME, MAINTAINING PRESSURE, PULSES FAINT BUT PALPABLE, DEPENDENT EDEMA NOTED, SKIN PWD. ABD SOFT, HYPERACTIVE BOWEL TONES, CONT FEED VIA OG TUBE, AT GOAL 50 ML/HR, NO RESIDUAL AT THIS TIME, RECTAL TUBE IN PLACE DRAINING BROWN LIQUID BM, WILL MONITOR. BRICENO CATH IN PLACE DRAINING CLEAR YELLOW URINE TO GRAVITY, WILL MONITOR.
--- NOTE | 2018-09-01 21:12 | NUR ---
UNABLE TO FLUSH OG TUBE FOR MED ADMINISTRATION, CONT UNABLE TO ASPIRATE RESIDUAL, OG REMOVED AND NEW OG PLACED. PLACEMENT VERIFIED BY AUSCULTATING 60 ML AIR OVER LEFT UPPER QUADRANT, RESIDUAL LESS THAN 10 ML IS NOTED AT THIS TIME, MEDS ADMIN PER ORDERS, PT TOLERATED PROCEDURE WELL.
[2018-09-02 04:04] LABS: BASOPHILS ABSOLUTE AUTO 0.05 K/mm3 (0.00-0.23); BASOPHILS PERCENT AUTO 0 % (0-2); EOSINOPHILS PERCENT AUTO 1 % (0-6); Hematocrit 39.2 % (37.0-53.0); Hemoglobin 12.3 g/dL (13.5-17.5); IMMATURE GRAN ABSOLUTE AUTO 0.63 K/mm3 (0.00-0.10); IMMATURE GRAN PERCENT AUTO 4 % (0-1); LYMPHOCYTES ABSOLUTE AUTO 1.98 K/mm3 (0.84-5.20); LYMPHOCYTES PERCENT AUTO 12 % (21-46); MONOCYTES ABSOLUTE AUTO 1.74 K/mm3 (0.16-1.47); MONOCYTES PERCENT AUTO 11 % (4-13); Mean Corpuscular HGB 31.5 pg (26.0-34.0); Mean Corpuscular HGB Conc 31.4 g/dL (31.5-36.5); Mean Corpuscular Volume 100 fL (80-100); NEUTROPHILS ABSOLUTE AUTO 12.03 K/mm3 (1.96-9.15); NEUTROPHILS PERCENT AUTO 72 % (41-73); NRBC ABSOLUTE 0.03 K/mm3 (0.00-0.02); NRBC Auto 0.2 /100 WBC (0.0-0.2); Platelet Count 145 K/mm3 (150-400); RDW Coefficient Variation 14.6 % (11.7-14.2); RDW Standard Deviation 52.9 fL (35.1-46.3); Red Blood Cell Count 3.91 M/mm3 (4.30-5.90); White Blood Cell Count 16.63 K/mm3 (4.00-11.30)
[2018-09-02 04:15] LABS: Mean Platelet Volume 12.8 fL (9.1-12.4)
[2018-09-02 06:48] LABS: Anion Gap 8 mmol/L (6-16); Blood Urea Nitrogen 49 mg/dL (8-24); Bun/Creatinine Ratio 52.8 (12.0-20.0); CO2, Blood 31 mmol/L (21-32); Calcium, Blood 7.8 mg/dL (8.5-10.1); Chloride, Blood 111 mmol/L (98-108); Creatinine, Blood 0.93 mg/dL (0.60-1.20); Glomerular Filtration Rate >60 (60-); Glucose, Blood 163 mg/dL (70-99); Potassium, Blood 3.8 mmol/L (3.5-5.5); Sodium, Blood 150 mmol/L (136-145)
--- NOTE | 2018-09-02 07:51 | NUR ---
PT RESTING QUIETLY CONTINUES INTUBATED WITHOUT SEDATION, GROSS SPONTANEOUS MOVEMENT WAS NOTED TO RIGHT FOREARM THIS SHIFT HOWEVER NO PURPOSEFUL MOVEMENT WAS NOTED. PT VSS CONTINUE TO MAINTAIN, TUBE FEED CONTINUES AT GOAL PT TOLERATED WELL, MINIMAL RESIDUALS, AT MIDNOC SEVERAL SYRINGES OF AIR WERE ASPIRATED PRIOR TO RESIDUAL OF LESS THAN 10 ML. OTHERWISE NO ACUTE CHANGES.
--- NOTE | 2018-09-02 08:00 | NUR ---
PATIENT APPEARS EVEN MORE EDEMATOUS THAN YESTERDAY. LASIX GIVEN IVP. RESP THERAPY CHANGED VENT MODE FROM AC TO SPONT 5/5 WITH 40% FIO2. TUBE FEEDING PIVIT 1.5 AT 50ML/HOUR W WATER 30ML Q4 HOURS. NO RESIDUALS. PAT HAD LARGE AMT OF LQ STOOL LAST NIGHT IN FECAL CATH. IMODIUM GIVEN. DR MILLIGAN HERE AND TALKED WITH ANF 2 DAUGHTERS AND WE WILL EXTUBATE. CHAPLAIN Xavier DE PAZ HERE WITH FAMILY.
--- NOTE | 2018-09-02 11:50 | NUR ---
TUBE FEEDING STOPPED AT 1045 AND PAT EXTUBATED AND OG REMOVED AT 1100. PT MED WITH FENTANYL 50 MICS AND THEN MORPHINE 2 MG FOR AIR HUNGER.FAMILY SITTING AT BEDSIDE.
--- NOTE | 2018-09-02 12:20 | NUR ---
PAL CARE CLINICAL AND FAMILY VISIT. Spoke with Automobile Painter and pt's RN for update on current status since extubation this am. Pt's daughters at bedside and his stepped out briefly to use restroom. Pt with shallow, even breathing, furrowed brow but no other nonverbal indicators of pain, anxiety, agitation or distress. He has been medicated per RN for air hunger with MS and for pain with fentanyl. Discussed changes in color and circulation with family and Christie nolen, given booklet on the 11th hour. Pt appears to be actively dying. Hands are swollen and starting to be mottled. Pt is diaphoretic. Time spent supporting family. Comfort care cart ordered for family. RN states pt with comfort care orders and that was entered for her per Dr Jeyson Snowden. Plan is to continue medications at this time per RN. Fluids are TKO only. Will follow closely for s/s managment and support of family. Pt may need scopolomine patch or atropine if secretions pool in upper airway or increase airway obstruction.
--- NOTE | 2018-09-02 16:04 | NUR ---
Several visits with family throughout this shift. I was present pre-extubation for prayer and gentle correctional counselor/case manager. Family tearful, but appropriate. They are very appreciaitive of emotional support and correctional counselor/case manager. Provided education and encouraged breaks. All of my interventions were well recieved. I will remain available.
--- NOTE | 2018-09-02 16:56 | NUR ---
[facility] COMORT CARE VISIT: AT BEDSIDE. "I'M SO SURPRISED HE'S STILL WITH US.". Status update received from nurses and spoke with Cna Hha. Pt has continued to decline since extubation this am. Discussed comfort care with pt's and she would like to d/c all other care and focus on comfort measaures at this time. T/c to Dr Snowden and orders obtained for comfort care. Reviewed all orders and medications with RN and . Pt is diaphoretic with respiratory rate of 28-32. He remains unresponsive to voice or tactile stimuli as previous to extubation. Hugs and support given to . Will remain available and follow up in am for s/s management. Message from that he will stop by after clinic passed on to , Danitza.
--- NOTE | 2018-09-02 18:28 | NUR ---
ASSUMED CARE / SHIFT SUMMARY: REPORT RECEIVED FROM YOVANI Ellison RN. ASSUMED CARE OF THIS PT AT APPROX 1430. SINCE ASSUMING CARE, NO ACUTE CHANGES HAVE OCCURED SINCE THAT TIME W/ PT CONDITION. AFTER SPEAKING W/ PT's FAMILY, PALLIATIVE CARE & DR. Jeyson MILLIGAN, IT IS DECIDED THAT COMFORT CARE IS NEEDED. THE PT's , REYMUNDO, EXPRESSES DESIRE FOR HIM TO BE COMFORTABLE HE PASSES & TO HAVE NO FURTHER MEDICAL INTERVENTIONS. THE PT IS CURRENTLY RESTING QUIETLY & SHOWING NO S/SX OF PAIN, DISCOMFORT OR AIR HUNGER AT THIS TIME. ALL MONITORS HAVE BEEN DISCONNECTED. WILL CONTINUE TO MONITOR & REPORT OFF TO ONCOMING RN.
== END 2018-09-03 02:22 ==
LOC: ER 16:31 → EDBD 18:59 → ICUW 18:59
PROVIDERS: Emergency Medicine; Family Medicine; Internal Medicine Critical Care Medicine; Internal Medicine Pulmonary Disease; ADMIT Hospitalist
PROC: 0BH17EZ Insertion of Endotracheal Airway into Trachea, Via Natural or Artificial Opening (ICD-10-PCS; principal; 2018-08-25)
PROC: 5A1955Z Respiratory Ventilation, Greater than 96 Consecutive Hours (ICD-10-PCS; 2018-08-25)
PROC: 5A12012 Performance of Cardiac Output, Single, Manual (ICD-10-PCS; 2018-08-31)
DX: I21.4 Non-ST elevation (NSTEMI) myocardial infarction (principal); J96.01 Acute respiratory failure with hypoxia; J69.0 Pneumonitis due to inhalation of food and vomit; S22.31XA Fracture of one rib, right side, initial encounter for closed fracture; R04.89 Hemorrhage from other sites in respiratory passages; G93.1 Anoxic brain damage, not elsewhere classified; N17.9 Acute kidney failure, unspecified; I46.9 Cardiac arrest, cause unspecified; I95.9 Hypotension, unspecified; W19.XXXA Unspecified fall, initial encounter; I48.91 Unspecified atrial fibrillation; R73.9 Hyperglycemia, unspecified; I25.10 Atherosclerotic heart disease of native coronary artery without angina pectoris; G20 Parkinson's disease; E87.6 Hypokalemia; I48.2 Chronic atrial fibrillation; E83.39 Other disorders of phosphorus metabolism; R57.0 Cardiogenic shock; B96.1 Klebsiella pneumoniae [K. pneumoniae] as the cause of diseases classified elsewhere; B95.1 Streptococcus, group B, as the cause of diseases classified elsewhere; B95.8 Unspecified staphylococcus as the cause of diseases classified elsewhere
CPT/HCPCS: 31720; 36415; 36555; 36600; 51702; 70450; 71045; 80047; 80048; 80053; 80069; 80162; 82330; 82803; 82947; 83605; 83735; 83880; 84100; 84484; 85014; 85025; 85610; 85730; 87070; 87077; 87147; 87186; 87205; 87493; 87804; 93005; 93010; 93306; 94002; 94003; 94667; 94668; 96365-59; 96366-59; 96375-59; 99291-25; 99292; C1751; C9113; J0171; J0282; J0461; J0610; J0690; J0696; J1644; J1940; J2060; J2270; J2370; J2543; J2930; J3010; J3480; J7040; J7060; J7070; J7120